=== PATIENT | female | born 1955 | race Caucasian/White ===

== ENCOUNTER 2017-06-30 10:08 | Observation (INO) | payer BC ==
[~2017-06-30] VITALS: Ht 177.8 cm; Wt 119.2 kg
[~2017-06-30 10:08] MED LIST: FLEXERIL10 MG PO; FLUOXETINE HCL20 M1 PO; LORAZEPAM0.5 MG PO; NAPROSYN500 MG PO; NEXIUM40 MG PO; SIMVASTATIN20 MG; VICODIN 5-3001 EACH PO; ZOFRAN4 MG PO
[2017-06-30] MEDS ORDERED: PERCOCET 5/31 TABLET PO (12:11)
[2017-06-30 15:57] LABS: CHLORIDE 102 mEq/L (99-109); POTASSIUM 4.4 mEq/L (3.7-5.4); SODIUM 137 mEq/L (136-147)
[2017-06-30 15:59] LABS: GLUCOSE 133 mg/dL (70-99)
[2017-06-30 16:00] LABS: ANION GAP 9 MEQ/L (2-14)
[2017-06-30 16:02] LABS: HEMATOCRIT 40.4 % (36.0-46.0); MCH 23.4 PG (29.0-34.0); MCHC 31.4 G/DL (30.0-36.0); MCV 74.5 FL (83-99); MEAN PLAT.VOLUME 9.9 uM^3 (9.5-12.4); PLATELET COUNT 201 K/uL (156-360); RBC DIS.WIDTH-CV 16.8 % (11.8-14.6); RBC DIS.WIDTH-SD 44.9 % (39-53); RED BLOOD COUNT 5.42 M/uL (3.80-5.20); WHITE BLOOD COUNT 8.9 K/uL (4.1-10.2)
[2017-06-30 16:03] LABS: GFR ESTIMATE (CALCULATED) > 59 mL/min/
[2017-06-30 16:04] LABS: UREA NITROGEN (BUN) 8 mg/dL (9-23)
[2017-06-30] MEDS ORDERED: FLUCELVAX IM (17:01)
[2017-06-30] MEDS ORDERED: FLUOXETINE HCL40 MG PO (17:01)
[2017-06-30] MEDS ORDERED: FLUTICASONE PRO16 GM BOTH NARES (17:01)
[2017-06-30] MEDS ORDERED: FLOVENT 11120 INHALA IH (17:02)
[2017-06-30] MEDS ORDERED: ALPHAGAN 0100 DROP/5 RIGHT EYE (17:02)
[2017-06-30] MEDS ORDERED: LORAZEPAM0.5 MG PO (17:03)
[2017-06-30] MEDS ORDERED: VENTOLIN HFA18 GM IH (17:04)
[2017-06-30] MEDS ORDERED: TRAMADOL HCL50 MG PO (17:04)
[2017-06-30] MEDS ORDERED: PROTONIX40 MG PO (17:04)
[2017-06-30] MEDS ORDERED: DAILY VITE1 EAC1 PO (17:05)
[2017-06-30] MEDS ORDERED: VITAMIN B-12250 MCG PO (17:06)
[2017-06-30] MEDS ORDERED: CALCIUM 600+D1 EACH PO (17:06)
[2017-06-30] MEDS ORDERED: VITAMIN D31000 UNIT PO (17:07)
[2017-06-30] MEDS ORDERED: BIOTIN1000 MICRO PO (17:07)
[2017-06-30 17:45] VITALS: BP 159/74
[2017-06-30 19:00] VITALS: BP 131/61
[2017-07-01 00:45] VITALS: BP 129/63
[2017-07-01 03:50] VITALS: BP 129/60
[2017-07-01 05:38] LABS: HEMATOCRIT 39.4 % (36.0-46.0); MCH 23.2 PG (29.0-34.0); MCV 74.9 FL (83-99); MEAN PLAT.VOLUME 10.2 uM^3 (9.5-12.4); PLATELET COUNT 203 K/uL (156-360); RBC DIS.WIDTH-CV 16.8 % (11.8-14.6); RBC DIS.WIDTH-SD 45.1 % (39-53); RED BLOOD COUNT 5.26 M/uL (3.80-5.20); WHITE BLOOD COUNT 6.5 K/uL (4.1-10.2)
[2017-07-01 05:53] LABS: ANION GAP 7 MEQ/L (2-14); CHLORIDE 99 MEQ/L (99-109); GFR ESTIMATE (CALCULATED) > 59 mL/min/; GLUCOSE 138 mg/dL (70-99); POTASSIUM 4.1 MEQ/L (3.7-5.4); SAMPLE HEMOLYSIS CHECK 0; SAMPLE ICTERIC CHECK 0; SAMPLE LIPEMIA CHECK 0; SODIUM 138 MEQ/L (136-147); UREA NITROGEN (BUN) 7 mg/dL (9-23)
[2017-07-01 08:30] VITALS: BP 123/60
[2017-07-01 12:09] VITALS: BP 117/56
[2017-07-01 16:00] VITALS: BP 150/78
[2017-07-01 20:00] VITALS: BP 140/62
[2017-07-02] VITALS: BP 130/62
[2017-07-02 04:23] VITALS: BP 137/65
[2017-07-02 07:42] VITALS: BP 134/61
[2017-07-02] MEDS ORDERED: ENDOCET 5-3251 EACH PO (11:16)
[2017-07-02] MEDS ORDERED: FLEXERIL10 MG PO (11:16)
[2017-07-02] MEDS ORDERED: LIDOCAINE1 EACH TD (11:16)
[2017-07-02 13:23] VITALS: BP 139/67
== END 2017-07-02 15:59 | disposition home or self-care (01) ==
LOC: EME → EDBD 10:08 → EME 10:08 → EDOF 16:01 → 5WEST 16:01 → EDOF 16:01 → ENRESERV 16:02 → 5WEST 17:26
PROVIDERS: Emergency Medicine; Physician Assistant
DX: G89.11 Acute pain due to trauma (principal); M54.5 Low back pain; S32.029A Unspecified fracture of second lumbar vertebra, initial encounter for closed fracture; E11.9 Type 2 diabetes mellitus without complications; G47.33 Obstructive sleep apnea (adult) (pediatric); Z98.84 Bariatric surgery status; J45.909 Unspecified asthma, uncomplicated; F41.9 Anxiety disorder, unspecified; F32.9 Major depressive disorder, single episode, unspecified; K21.9 Gastro-esophageal reflux disease without esophagitis; W18.30XA Fall on same level, unspecified, initial encounter
CPT/HCPCS: 70450; 72110; 72125; 72131; 73030; 80048; 85027; 86226 90; 94640; 94640 76; 99202; 99281; 99285; C9113; G0378; G8978 GP CI; G8979 GP CH; J2270; J2360; J2405; J3010